=== PATIENT | male | born 1955 | race Caucasian/White ===

== ENCOUNTER → 2024-04-06 15:00 | Outpatient (BNVA) | payer MEDICARE, SELFPAY | PROVIDERS: PCP Family Medicine; Visit Provider Family Medicine | DX: Z12.11 Encounter for screening for malignant neoplasm of colon (principal); Z12.5 Encounter for screening for malignant neoplasm of prostate; Z76.89 Persons encountering health services in other specified circumstances; E78.2 Mixed hyperlipidemia | CPT/HCPCS: 80053; 80061; 83690; 85025; G0103 ==

== ENCOUNTER → 2025-08-28 14:15 | Outpatient (BNVA) | payer MEDICARE, SELFPAY | PROVIDERS: PCP Family Medicine; Visit Provider Family Medicine | DX: E55.9 Vitamin D deficiency, unspecified (principal); F17.210 Nicotine dependence, cigarettes, uncomplicated; Z12.2 Encounter for screening for malignant neoplasm of respiratory organs; I10 Essential (primary) hypertension; R79.89 Other specified abnormal findings of blood chemistry; Z12.5 Encounter for screening for malignant neoplasm of prostate | CPT/HCPCS: 80053; 80061; 82306; 82607; 84443; 85025; 85651; 86038; 86140; 86200; 86431; G0103 ==

== ENCOUNTER → 2025-08-30 12:40 | Outpatient (BNVA) | payer MEDICARE, SELFPAY | PROVIDERS: PCP Family Medicine; Visit Provider Student in an Organized Health Care Education/Training Program | DX: Z12.11 Encounter for screening for malignant neoplasm of colon (principal) | CPT/HCPCS: 99204 ==

== ENCOUNTER 2025-09-17 06:04 | Day surgery (SDC) | payer MEDICARE, MEDICAID, SELFPAY ==
[2025-09-17 06:45] VITALS: BP 127/83; PULSE 68; RESP 16; TEMP 36.4; O2SAT 96; BMI 22.5
--- NOTE | 2025-09-17 07:11 | W.PM.OPSUD ---
Surgery/Procedure H&P Update DATE OF PROCEDURE: September 17, 2025 DATE H&P PERFORMED: 08/30/25 H&P UPDATE INFORMATION: I have reviewed H&P completed within last 30 days, I have examined patient prior to procedure, No changes to prior documentation and Risks and benefits of the procedure reviewed PLANNED PROCEDURE: Operation Date: 09/17/25 08:00 Proposed Procedures p Colonoscopy 59419 G0121 Z12.11(Not Applicable) - Davin Cordero MD
--- NOTE | 2025-09-17 07:46 | ANES.PREANE2 ---
Pre-Anesthetic Assessment Height/Weight: Height 1.93 m Weight 83.915 kg Temp Pulse Resp BP Pulse Ox O2 Del Method 97.6 F 68 16 127/83 96 Room Air 09/17/25 06:45 09/17/25 06:45 09/17/25 06:45 09/17/25 06:45 09/17/25 06:45 09/17/25 06:45 Preop Diagnosis: Screening Operation Date: 09/17/25 08:00 Proposed Procedures p Colonoscopy [id number] G0121 Z12.11(Not Applicable) - Davin Cordero MD Was Beta Kathy taken within 24 hours: Yes Was Clonidine taken within 24 hours: N/A Last intake: Intake Last Liquid Date 09/16/25 Last Liquid Time 23:30 Last Solid Date 09/15/25 Last Solid Time 19:00 Social Tobacco and No alcohol 0.5 pk/day Exam alert, oriented x 3, clear to auscultation bilaterally and regular rate & rhythm Airway Submandibular: within normal limits Cervical ROM: within normal limits Mallampati: Class II Dentition: false History/ROS No significant history except as noted and No significant complaints Pulmonary Cough and Exertional Dyspnea CV/HEM Hypertension None reported Hepatic None reported GI None reported Metabolic None reported Musc/skel Lower Back Pain and Osteoarthritis/DJD Anesthetic Plan ASA status: 3 Anesthesia: Anesthesia Evaluation and MAC Risk of > 500 ml blood loss (7ml/kg in children): No Medications/Allergies Home Medications ?Medication ?Instructions ?Recorded ?Confirmed ?Last Taken ?Type amlodipine 10 mg tablet 10 mg PO DAILY #90 tabs 09/04/25 09/10/25 09/16/25 Rx prednisone 20 mg tablet See Rx Instructions .Route 09/04/25 09/10/25 Unknown Rx .COMPLEX PRN arthritis flare #30 tabs Allergies Allergy/AdvReac Type Severity Reaction Status Date / Time No Known Allergies Allergy Verified 09/17/25 06:44 Current Medications Generic Name Dose Route Start Last Admin Trade Name Freq PRN Reason Stop Dose Admin Sodium Chloride 1,000 mls @ 15 mls/hr 09/17/25 06:29 09/17/25 06:51 Sodium Chloride 0.9% IV 09/18/25 06:28 15 mls/hr .Q24H PRN Administration COLONOSCOPY FLUIDS PFSH Anesthesia Family History Father Heart disease Mother Cancer Social History Smoking and tobacco/nicotine status: current every day tobacco/nicotine user cigarettes Packs smoked per day: 0.5 Second hand smoke exposure: No Alcohol intake: never Substance/Drug Use: never Adopted: No Caregiver/support person: No Lives independently: Yes Current occupational exposures/hazards: No Current gender identity: Male
[2025-09-17 08:31] VITALS: BP 114/71; PULSE 70; RESP 20; TEMP 36.6; O2SAT 98
--- NOTE | 2025-09-17 08:35 | PC.NURSE ---
Patient had poor prep. Dr Cordero reached splenic flexure but was unable to go any further due to poor prep. No cecum time reached.
--- NOTE | 2025-09-17 09:05 | ANE.PACU2 ---
Inpatient post-anesthesia follow up: Airway intact: Yes Vital signs: Temperature 97.8 F Pulse Rate 70 Respiratory Rate 20 Blood Pressure 114/71 Pulse Oximetry 98 Oxygen Delivery Me thod Nasal Cannula Oxygen Flow Rate 3 Fraction of Inspir ed Oxygen Hydration adequate: Yes Nausea and vomiting: No Pain level: 1 Mental status: Baseline
== END 2025-09-17 09:05 | disposition home or self-care (01) ==
PROVIDERS: PCP Family Medicine; Visit Provider Student in an Organized Health Care Education/Training Program
PROC: 0DJD8ZZ Inspection of Lower Intestinal Tract, Via Natural or Artificial Opening Endoscopic (ICD-10-PCS; CPT 45378; principal; 2025-09-17 08:00)
DX: Z12.11 Encounter for screening for malignant neoplasm of colon (principal); K57.30 Diverticulosis of large intestine without perforation or abscess without bleeding; K62.1 Rectal polyp; Z80.8 Family history of malignant neoplasm of other organs or systems; I10 Essential (primary) hypertension; F17.210 Nicotine dependence, cigarettes, uncomplicated
CPT/HCPCS: 45385; 88305; J2704; J7030

== ENCOUNTER 2025-09-19 15:28 | Outpatient (CLI) | payer MEDICARE, MEDICAID, SELFPAY ==
--- NOTE | 2025-09-19 15:30 | CT_ITS ---
WS: [id number] LDCT LUNG CANCER SCREENING HISTORY: F17.210 - Nicotine dependence, cigarettes, uncomplicated TECHNIQUE: Axial imaging performed from the apices to 1 cm below the costophrenic angles. Coronal and sagittal reformats are submitted with axial MIP series. All CT scans at [facility] use at least one of these dose optimization techniques: automated exposure control; mA and/or kV adjustment per patient size (includes targeted exams where dose is matched to clinical indication); or iterative reconstruction. DLP: 62.11 mGy.cm DIvol: Mean CTDIvol: 1.00 (mGy) COMPARISON: None available. Diagnostic quality: Satisfactory Lungs: Hyperexpanded lungs with flattening of the diaphragms. Small RIGHT paravertebral, pleural nodules in the RIGHT lower lobe with the largest measuring 5 mm. Linear atelectasis at the lingula. No mass. Heart: Mild cardiomegaly.. Other findings: Ectatic atherosclerosis thoracic aorta. 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 Normal size pulmonary artery. No adenopathy. RIGHT axillary lymph nodes with the largest measuring 2.1 cm. Small hiatal hernia. No adrenal mass. Mild increase in thoracic kyphosis. CT/CT lung screening [id number] IMPRESSION: LUNG-RADS: 2S-Benign Appearance or Behavior with Significant Findings FOLLOW UP: 12 Month: Continue annual screening with LDCT OTHER FINDINGS (S MODIFIER): Mild aneurysmal dilatation ascending thoracic aort a to 4.2 cm. Prominent but indeterminant RIGHT axillary lymph nodes. Normal shape of the lym ph nodes. Lymph nodes can be evaluated by ultrasound to ensure there is no susp icion for malignancy.
== END 2025-09-19 15:29 | disposition home or self-care (01) ==
LOC: RAD 15:30
PROVIDERS: PCP Family Medicine; Visit Provider Family Medicine
DX: Z12.2 Encounter for screening for malignant neoplasm of respiratory organs (principal); F17.210 Nicotine dependence, cigarettes, uncomplicated; I51.7 Cardiomegaly; J98.11 Atelectasis; I70.0 Atherosclerosis of aorta; I77.810 Thoracic aortic ectasia; K44.9 Diaphragmatic hernia without obstruction or gangrene; M40.204 Unspecified kyphosis, thoracic region; J98.4 Other disorders of lung
CPT/HCPCS: 71271

== ENCOUNTER → 2025-10-01 09:30 | Outpatient (BNVA) | payer MEDICARE, MEDICAID, SELFPAY | PROVIDERS: PCP Family Medicine; Visit Provider Student in an Organized Health Care Education/Training Program | DX: Z51.89 Encounter for other specified aftercare (principal) | CPT/HCPCS: 99213 ==